=== PATIENT | female | born 1995 | race African-American/Black ===

== ENCOUNTER 2017-02-28 21:33 | Emergency (ER) | payer OTHER ==
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
[~2017-02-28 21:33] MED LIST: ERYTHROMYCIN O3.5 GM OD; MOTRIN600 M1 PO; NO MEDICATIONS; ROBAXIN 750750 MG PO; TYLENOL #3 PO
== END 2017-03-01 01:00 | disposition home or self-care (01) ==
LOC: SED 21:33
DX: S29.012A Strain of muscle and tendon of back wall of thorax, initial encounter (principal); S46.912A Strain of unspecified muscle, fascia and tendon at shoulder and upper arm level, left arm, initial encounter; V43.52XA Car driver injured in collision with other type car in traffic accident, initial encounter
CPT/HCPCS: 72100; 73030; 99283